=== PATIENT | male | born 1980 | race Caucasian/White ===

== ENCOUNTER → 2022-05-13 | Outpatient (CLI) | payer BC ==
[~2022-05-13] MED LIST: ALPRAZOLAM; DESYREL 50MG50 MG PO; HORIZANT600 MG PO; KLONOPIN 1MG1 MG PO; LITHIUM 60600 MG/CAP; LORTAB 5/500 501 TAB PO; NO HOME MEDICATIONS; NORCO 325 MG-51 TAB PO; PEN-VEE K500 MG PO; PERCOCET 325 MG1 TA2 PO; XANAX 1MG1 MG; XANAX 1MG1 MG PO; ZOLOFT; ZOLOFT 25MG25 MG PO
== END ==
LOC: COL.RAD 10:30
DX: M19.011 Primary osteoarthritis, right shoulder (principal)

== ENCOUNTER 2022-05-31 06:22 | Day surgery (SDC) | payer BC ==
[~2022-05-31] VITALS: Ht 182.9 cm; Wt 98.0 kg
[~2022-05-31 06:22] MED LIST changes: +CIPRODEX OT; +LEVAQUIN 750MG750 M1 PO
[2022-05-31 07:10] VITALS: BP 150/91; PULSE 81; TEMP 98.7
[2022-05-31] MEDS ORDERED: DEPO-TESTOS200 MG/M1 IM (07:15)
[2022-05-31] MEDS ORDERED: CEPHALEXIN500 M1 PO (08:45)
[2022-05-31] MEDS ORDERED: NAPROSYN500 MG PO (08:45)
[2022-05-31] MEDS ORDERED: NORCO 325 MG-51 TAB PO (08:45)
[2022-05-31 09:07] VITALS: BP 124/58; PULSE 70; TEMP 97.3
[2022-05-31 09:22] VITALS: BP 143/85; PULSE 64
[2022-05-31 09:24] VITALS: TEMP 97.3
[2022-05-31 09:37] VITALS: BP 135/80; PULSE 76
[2022-05-31 09:52] VITALS: BP 137/82; PULSE 72
--- NOTE | 2022-05-31 10:00 | NUR ---
0907 RETURNS TO ROOM 3 PER CART. AWAKE, ALERT. HOB ELEVATED 40 DEGREES. RESP UNLABORED. VITAL SIGNS OBTAINED. PATIENT DENIES PAIN. MOVES FINGERS ON RIGHT HAND ON REQUEST, ADMITS TO NUMBNESS IN FINGERS. EXTEMITY WARM. FINGERS PINK WITH BRISK CAP REFILL. GAUZE DRESSING X 2 SITES RIGHT SHOULDER CLEAN DRY AND INTACT. SLING ON. CALL LIGHT AT SIDE. IN ROOM. 0920 AWAKE, ALERT. CONVERSES WITH . TOLERATES PO SPRITE WITHOUT NAUSEA 0945 DISCHARGE INSTRUCTIONS REVIEWED. PATIENT AND VERBALIZE UNDERSTANDING. COPY PROVIDED IN DISCHARGE FOLDER 0952 SITS ON EDGE OF BED. DRESSES WITH MINIMAL ASSIST FROM . 0955 AMBULATES TO BATHROOM. ADMITS TO VOIDING WITHOUT DIFFICULTY
== END 2022-05-31 10:05 | disposition home or self-care (01) ==
LOC: SDCO 06:22
DX: M75.01 Adhesive capsulitis of right shoulder (principal); G89.29 Other chronic pain; F17.290 Nicotine dependence, other tobacco product, uncomplicated
CPT/HCPCS: A4619; J0171; J0690; J1100; J1885; J2250; J2405; J2704; J2765; J2795; J3010; J7120

== ENCOUNTER 2022-06-07 08:15 | Outpatient (RCR) | payer BC ==
[~2022-06-07 08:15] MED LIST changes: +CEPHALEXIN500 M1 PO; +DEPO-TESTOS200 MG/M1 IM; +NAPROSYN500 MG PO
== END 2022-06-28 | disposition home or self-care (01) ==
LOC: PT.GENESIS
DX: M75.01 Adhesive capsulitis of right shoulder (principal)